=== PATIENT | female | born 1995 | race Caucasian/White ===

== ENCOUNTER 2017-08-16 14:26 | Emergency (ER) | payer BC ==
[2017-08-16] MEDS ORDERED: ONDANSETRON DISINTEGRATING 4 MG TAB PO ONE (14:41)
--- NOTE | 2017-08-16 15:10 | EDPHY ---
H & P Time Seen by Provider: 08/16/17 15:04 HPI/ROS: Chief complaint. Nausea and vomiting HPI. 22-year-old female presents emergency department with nausea vomiting since about 9:00 a.m. this morning. She felt well last night and then awoke at 9 feeling upset stomach. Can't keep any oral fluids down. Denies any areas of abdominal pain but feels queasy. No diarrhea. No sick contacts or bad food. She did have similar symptoms in February had a negative H pylori test and was treated with omeprazole. She uses a map result only as needed. She has not had any abdominal surgery. No chest discomfort or shortness of breath. ROS Constitutional. no fever/chills, no weakness Eyes. no problems with vision ENT. no sore throat, no nasal drainage Cardiovascular. no chest pain Respiratory. no shortness of breath, no cough Abdominal. No abdominal pain but nausea and vomiting . no problems urinating MS. no calf pain/swelling, no neck/back pain, no joint pain Skin. no rash Lymph. no swollen glands Neuro. no headache, no dizziness, no difficulty walking or with speech Past Medical/Surgical History: Healthy Social History: Single, nonsmoker, no alcohol Smoking Status: Never smoked Physical Exam: General Appearance: Alert well-developed female moderate distress vital signs are stable Eyes: Pupils equal and round no pallor or injection. ENT, mucous membranes are dry Respiratory: There are no retractions, lungs are clear to auscultation. Cardiovascular: Regular rate and rhythm. Gastrointestinal: Abdomen is soft and nontender, no masses, bowel sounds normal. Neurological: Awake and alert, sensory and motor exams grossly normal. Skin: Warm and dry, no rashes. Musculoskeletal: Neck is supple nontender. Extremities symmetrical, full range of motion. Psychiatric: Patient is oriented X 3, there is no agitation. Constitutional: Initial Vital Signs Temperature (C) 36.7 C 08/16/17 14:35 Heart Rate 81 08/16/17 14:35 Respiratory Rate 28 H 08/16/17 14:35 Blood Pressure 142/89 H 08/16/17 14:35 O2 Sat (%) 100 08/16/17 14:35 O2 Delivery Mode Room Air Allergies/Adverse Reactions: No Known Allergies Allergy (Unverified 08/16/17 14:39) Home Medications: Medication Instructions Recorded Promethazine HCl [Phenergan 25mg 25 mg PO Q4-6PRN PRN #7 tab 08/16/17 (*)] Medical Decision Making Procedures: Oral Zofran at triage IV normal saline with initial target 2 L. Phenergan IV. ED Course/Re-evaluation: Re-evaluation 3:45 p.m.. Patient feeling better. No nausea vomiting. IV running. 4:30 p.m. patient has her finger down her throat while I walk into the room. She is now retching a again. She does need to urinate Haldol, Benadryl IV Re-evaluation 6:35 p.m.. Patient has no longer any nausea or vomiting. She has taken oral fluids. Again she has been up to the bathroom to urinate. Patient and I discussed treatment plan including criteria for return importance of follow-up and further evaluation. She expresses understanding and agreement Differential Diagnosis: I considered hyperemesis from , THC induced cyclic vomiting, gastroenteritis. I also considered appendicitisin - Data Points Laboratory Results: Laboratory Results 08/16/17 15:02 08/16/17 15:02 08/16/17 08/16/17 08/16/17 15:02 15:02 15:02 WBC 11.09 10^3/uL H 10^3/uL (3.80-9.50) RBC 5.19 10^6/uL 10^6/uL (4.18-5.33) Hgb 14.9 g/dL g/dL (12.6-16.3) Hct 44.7 % % (38.0-47.0) MCV 86.1 fL fL (81.5-99.8) MCH 28.7 pg pg (27.9-34.1) MCHC 33.3 g/dL g/dL (32.4-36.7) RDW 13.2 % % (11.5-15.2) Plt Count 335 10^3/uL 10^3/uL (150-400) MPV 11.1 fL fL (8.7-11.7) Neut % (Auto) 64.7 % % (39.3-74.2) Lymph % (Auto) 29.3 % % (15.0-45.0) [place] % (Auto) 4.8 % % (4.5-13.0) Eos % (Auto) 0.2 % L % (0.6-7.6) Baso % (Auto) 0.5 % % (0.3-1.7) Nucleat RBC Rel Count 0.0 % % (0.0-0.2) Absolute Neuts (auto) 7.19 10^3/uL H 10^3/uL (1.70-6.50) Absolute Lymphs (auto) 3.25 10^3/uL H 10^3/uL (1.00-3.00) Absolute Monos (auto) 0.53 10^3/uL 10^3/uL (0.30-0.80) Absolute Eos (auto) 0.02 10^3/uL L 10^3/uL (0.03-0.40) Absolute Basos (auto) 0.05 10^3/uL 10^3/uL (0.02-0.10) Absolute Nucleated RBC 0.00 10^3/uL 10^3/uL (0-0.01) Immature Gran % 0.5 % % (0.0-1.1) Immature Gran # 0.05 10^3/uL 10^3/uL (0.00-0.10) Sodium REJ Potassium Not Reported Chloride Not Reported Carbon Dioxide Not Reported Anion Gap Not Reported BUN Not Reported Creatinine Not Reported Estimated GFR Not Reported Glucose Not Reported Calcium Not Reported Lipase REJ Beta HCG, Qual NEGATIVE Medications Given: Discontinued Medications Diphenhydramine HCl (Benadryl Injection) 12.5 mg IVP EDNOW ONE Stop: 08/16/17 16:50 Last Admin: 08/16/17 16:55 Dose: 12.5 mg Haloperidol Lactate (Haldol Injection) 2.5 mg IVP EDNOW ONE Stop: 08/16/17 16:50 Last Admin: 08/16/17 16:55 Dose: 2.5 mg Sodium Chloride (Ns) 1,000 mls @ 0 mls/hr IV ONCE ONE; Wide Open PRN Reason: Protocol Stop: 08/16/17 15:17 Last Admin: 08/16/17 15:26 Dose: 1,000 mls Sodium Chloride (Ns) 1,000 mls @ 0 mls/hr IV EDNOW ONE; Wide Open PRN Reason: Protocol Stop: 08/16/17 15:17 Last Admin: 08/16/17 15:26 Dose: 1,000 mls Ondansetron HCl (Zofran Odt) 4 mg PO EDNOW ONE Stop: 08/16/17 14:42 Last Admin: 08/16/17 14:46 Dose: 4 mg Promethazine HCl (Phenergan) 12.5 mg IVP EDNOW ONE Stop: 08/16/17 15:16 Last Admin: 08/16/17 15:25 Dose: 12.5 mg Departure - Departure Disposition: Home, Routine, Self-Care Clinical Impression: Vomiting Qualifiers: Vomiting type: cyclical vomiting Vomiting Intractability: non-intractable Nausea presence: with nausea Qualified Code(s): G43.A0 - Cyclical vomiting, not intractable Condition: Good Instructions: Acute Nausea and Vomiting (ED) Additional Instructions: Frequent, small sips fluids. Phenergan as needed for nausea and vomiting. Gradual diet advancement. Return for worsening symptoms. Recheck in 1 day if not improved Referrals: UMAIR SALAZAR [Other] - As per Instructions [facility] [Outside] - 1 day, if not improved Prescriptions: Promethazine HCl [Phenergan 25mg (*)] 25 mg PO Q4-6PRN PRN #7 tab PRN Reason: Nausea/Vomiting, Use 1st
[2017-08-16] MEDS ORDERED: PROMETHAZINE HCL 25 MG/ML INJ IVP ONE (15:15)
[2017-08-16] MEDS ORDERED: NS 1,000 ML IV ONE ×2 (15:16)
[2017-08-16 15:20] LABS: % IMMATURE GRANULYOCYTES 0.5 % (0.0-1.1); ABSOLUTE IMMATURE GRANULOCYTES 0.05 10^3/uL (0.00-0.10); ADD DIFF? NO; ADD MORPH? NO; ADD SCAN? NO; ATYPICAL LYMPHOCYTE FLAG 10 (0-99); FRAGMENT RBC FLAG 0 (0-99); HEMATOCRIT 44.7 % (38.0-47.0); HEMOGLOBIN 14.9 g/dL (12.6-16.3); LEFT SHIFT FLG 0 (0-99); LIPEMIA HEMOLYSIS FLAG 80 (0-99); MEAN CELL HEMOGLOBIN 28.7 pg (27.9-34.1); MEAN CELL HEMOGLOBIN CONCENTR. 33.3 g/dL (32.4-36.7); MEAN CELL VOLUME 86.1 fL (81.5-99.8); MEAN PLATELET VOLUME 11.1 fL (8.7-11.7); PLATELET CLUMPS FLAG 20 (0-99); PLATELET COUNT 335 10^3/uL (150-400); RED BLOOD CELL COUNT 5.19 10^6/uL (4.18-5.33); RED CELL DISTRIBUTION WIDTH 13.2 % (11.5-15.2)
[2017-08-16 16:27] VITALS: PULSE 74
[2017-08-16] MEDS ORDERED: HALOPERIDOL LACT 5 MG/ML INJ IVP ONE (16:49)
[2017-08-16 18:39] VITALS: BP 124/78; RESP 18; TEMP 98.4; O2SAT 95
== END 2017-08-16 18:51 | disposition home or self-care (01) ==
DX: G43.A0 Cyclical vomiting, in migraine, not intractable (principal); E86.9 Volume depletion, unspecified
CPT/HCPCS: 96374; J1200; J2550

== ENCOUNTER 2017-09-10 13:40 | Emergency (ER) | payer BC ==
[2017-09-10] MEDS ORDERED: ONDANSETRON DISINTEGRATING 4 MG TAB PO ONE (13:46)
[2017-09-10] MEDS ORDERED: NS 1,000 ML IV ONE ×2 (14:46→15:53)
[2017-09-10] MEDS ORDERED: METOCLOPRAMIDE 10 MG/2 ML VIAL ONE (14:51)
[2017-09-10] MEDS ORDERED: METOCLOPRAMIDE 10 MG/2 ML VIAL IVP ONE (14:55)
--- NOTE | 2017-09-10 14:55 | EDPHY ---
General Narrative: CHIEF COMPLAINT: Nausea vomiting HISTORY OF PRESENT ILLNESS: Patient complains of sudden onset of nausea vomiting this morning at 9:00 a.m.. Constant duration. Continually worsening. Multiple episodes. Associated with epigastric and right upper quadrant abdominal pain. Associated with some dizziness. No chest pain. No shortness of breath. No trauma or injury. No diarrhea. No bloody emesis. No fever. History of gastroparesis diagnosed earlier this summer. Has been taking promethazine and Reglan due to this. No other associated complaints or modifying factors REVIEW OF SYSTEMS: Ten systems reviewed and are negative unless otherwise noted in the HPI PCP: Alex SPECIALISTS: [facility] PAST MEDICAL HISTORY: Gastroparesis PAST SURGICAL HISTORY: None SOCIAL HISTORY: Nonsmoker. No alcohol. Marijuana use twice weekly. Originally from [place]. Currently a sophomore at [employer] FAMILY HISTORY: Noncontributory EXAMINATION General Appearance: Alert, no distress Head: normocephalic, atraumatic Eyes: Pupils equal and round, no conjunctival pallor or injection ENT, Mouth: Mucous membranes moist Neck: Normal inspection, supple, non-tender Respiratory: Lungs are clear to auscultation. No wheezing, rhonchi or crackles Cardiovascular: Regular rate and rhythm. No murmur Gastrointestinal: Abdomen is soft and nondistended. There is tenderness in the epigastrium right upper quadrant. No guarding. No tympany. No rigidity. No CVA tenderness. Back: non-tender, no bony abnormalities Neurological: A&O, nonfocal, normal gait Skin: Warm and dry, no rash Extremities: Nontender, no pedal edema Psychiatric: Mood and affect normal DIFFERENTIAL DIAGNOSES: Including but not limited to cholecystitis, cholelithiasis, peptic ulcer, gastritis, enteritis, gastroparesis, gastric outlet obstruction MDM: 2:50 p.m. Nausea vomiting epigastric pain. Patient has reported history of gastroparesis but no history of diabetes. Still has a gallbladder. Abdominal exam does reveal some right upper quadrant tenderness but is nonacute in severity. Laboratory studies are currently being drawn. I have ordered IV fluid, Reglan and Benadryl. Consider ultrasound versus CT scan pending results of laboratory studies. 3:53 p.m. Patient re-evaluated. She is now much more comfortable. No longer vomiting. Laboratory studies are consistent with vomiting. There is no transaminitis or abnormality of the liver function panel given her history and location of her pain, I have ordered an ultrasound. Continue with IV fluid resuscitation. 4:35 p.m. Notified by radiologist Dr. Billings. Ultrasound is unremarkable for any acute findings. 4:55 p.m. Patient re-evaluated. She is starting to feel better. This is after multiple anti emetics. I did offer admission the hospital for further control but she has declined. She feels that she is well enough to go home. Her abdominal exam remains benign and I do not feel she warrants a CT scan at this time. I will send her home with Zofran and promethazine. She is to contact her established GI physician at [facility]. She is to return to the emergency department for any intolerance of liquid over 24 hours or any worsening symptoms. She is comfortable this plan. She will be discharged home stable condition following the current L of IV fluid. - Diagnostics Imaging Results: Imaging Impressions Abdomen Ultrasound 09/10/17 15:48 Impression: No cholelithiasis or biliary ductal dilation. Findings and recommendations discussed with Emergency Department physician, Capo Mcgill PAC at 16:36 hour, 09/10/2017. Final report concurs with initial preliminary interpretation. - History Smoking Status: Never smoked - Objective Vital Signs: Initial Vital Signs Heart Rate 83 09/10/17 13:41 Respiratory Rate 18 09/10/17 13:41 Blood Pressure 115/88 H 09/10/17 13:41 O2 Sat (%) 99 09/10/17 13:41 O2 Delivery Mode Room Air Allergies/Adverse Reactions: No Known Allergies Allergy (Unverified 08/16/17 14:39) Home Medications: Medication Instructions Recorded Promethazine HCl [Phenergan 25mg 25 mg PO Q4-6PRN PRN #7 tab 08/16/17 (*)] Ondansetron Odt [Zofran Odt 4 mg 4 mg PO Q6 PRN #12 tab 09/10/17 (*)] Promethazine HCl [Phenergan 25mg 25 mg PO Q8 PRN #12 tab 09/10/17 (*)] Laboratory Results: Laboratory Results 09/10/17 15:05 09/10/17 15:05 09/10/17 09/10/17 09/10/17 15:05 15:05 15:05 WBC 12.61 10^3/uL H 10^3/uL (3.80-9.50) RBC 5.20 10^6/uL 10^6/uL (4.18-5.33) Hgb 15.4 g/dL g/dL (12.6-16.3) Hct 43.6 % % (38.0-47.0) MCV 83.8 fL fL (81.5-99.8) MCH 29.6 pg pg (27.9-34.1) MCHC 35.3 g/dL g/dL (32.4-36.7) RDW 13.3 % % (11.5-15.2) Plt Count 307 10^3/uL 10^3/uL (150-400) MPV 10.7 fL fL (8.7-11.7) Neut % (Auto) 77.7 % H % (39.3-74.2) Lymph % (Auto) 15.5 % % (15.0-45.0) [place] % (Auto) 5.8 % % (4.5-13.0) Eos % (Auto) 0.1 % L % (0.6-7.6) Baso % (Auto) 0.3 % % (0.3-1.7) Nucleat RBC Rel Count 0.0 % % (0.0-0.2) Absolute Neuts (auto) 9.81 10^3/uL H 10^3/uL (1.70-6.50) Absolute Lymphs (auto) 1.95 10^3/uL 10^3/uL (1.00-3.00) Absolute Monos (auto) 0.73 10^3/uL 10^3/uL (0.30-0.80) Absolute Eos (auto) 0.01 10^3/uL L 10^3/uL (0.03-0.40) Absolute Basos (auto) 0.04 10^3/uL 10^3/uL (0.02-0.10) Absolute Nucleated RBC 0.00 10^3/uL 10^3/uL (0-0.01) Immature Gran % 0.6 % % (0.0-1.1) Immature Gran # 0.07 10^3/uL 10^3/uL (0.00-0.10) Sodium 142 mEq/L mEq/L (134-144) Potassium 4.0 mEq/L mEq/L (3.5-5.2) Chloride 105 mEq/L mEq/L (97-110) Carbon Dioxide 18 mEq/l L mEq/l (22-31) Anion Gap 19 mEq/L H mEq/L (8-16) BUN 9 mg/dL mg/dL (7-23) Creatinine 0.7 mg/dL mg/dL (0.6-1.0) Estimated GFR > 60 Glucose 113 mg/dL H mg/dL (70-100) Calcium 10.6 mg/dL H mg/dL (8.5-10.4) Total Bilirubin 1.4 mg/dL mg/dL (0.1-1.4) Conjugated Bilirubin 0.3 mg/dL mg/dL (0.0-0.5) Unconjugated Bilirubin 1.1 mg/dL mg/dL (0.0-1.1) AST 35 IU/L IU/L (14-46) ALT 41 IU/L IU/L (9-52) Alkaline Phosphatase 44 IU/L IU/L (38-126) Total Protein 8.3 g/dL H g/dL (6.3-8.2) Albumin 5.1 g/dL H g/dL (3.5-5.0) Lipase 29 IU/L IU/L (23-300) Beta HCG, Qual NEGATIVE Medications Given: Discontinued Medications Diphenhydramine HCl (Benadryl Injection) 50 mg IVP EDNOW ONE Stop: 09/10/17 14:56 Last Admin: 09/10/17 15:00 Dose: 50 mg Sodium Chloride (Ns) 1,000 mls @ 0 mls/hr IV EDNOW ONE; Wide Open PRN Reason: Protocol Stop: 09/10/17 14:47 Last Admin: 09/10/17 15:00 Dose: 1,000 mls Sodium Chloride (Ns) 1,000 mls @ 0 mls/hr IV EDNOW ONE; Wide Open PRN Reason: Protocol Stop: 09/10/17 15:54 Last Admin: 09/10/17 16:19 Dose: 1,000 mls Lorazepam (Ativan Injection) 1 mg IVP EDNOW ONE Stop: 09/10/17 16:14 Last Admin: 09/10/17 16:19 Dose: 1 mg Metoclopramide HCl (Reglan Injection) 10 mg IVP EDNOW ONE Stop: 09/10/17 14:56 Last Admin: 09/10/17 15:00 Dose: 10 mg Ondansetron HCl (Zofran Odt) 4 mg PO EDNOW ONE Stop: 09/10/17 13:47 Last Admin: 09/10/17 13:48 Dose: 4 mg Departure - Departure Disposition: Home, Routine, Self-Care Clinical Impression: Gastroparesis Nausea & vomiting Qualifiers: Vomiting type: unspecified Vomiting Intractability: non-intractable Qualified Code(s): R11.2 - Nausea with vomiting, unspecified Condition: Good Instructions: Acute Nausea and Vomiting (ED), Gastroparesis (ED) Referrals: UNKNOWN,PCP [Other] - As per Instructions Scarlet Clemente MD [[facility] Primary Care Provider] - As per Instructions ALEX Fletcher,. [Clinic] - As per Instructions Prescriptions: Ondansetron Odt [Zofran Odt 4 mg (*)] 4 mg PO Q6 PRN #12 tab PRN Reason: Nausea/Vomiting, Use 1st Promethazine HCl [Phenergan 25mg (*)] 25 mg PO Q8 PRN #12 tab PRN Reason: Nausea/Vomiting, Use 1st
[2017-09-10 15:20] LABS: % IMMATURE GRANULYOCYTES 0.6 % (0.0-1.1); ABSOLUTE IMMATURE GRANULOCYTES 0.07 10^3/uL (0.00-0.10); ADD DIFF? NO; ADD MORPH? NO; ADD SCAN? NO; ATYPICAL LYMPHOCYTE FLAG 0 (0-99); FRAGMENT RBC FLAG 0 (0-99); HEMATOCRIT 43.6 % (38.0-47.0); HEMOGLOBIN 15.4 g/dL (12.6-16.3); LEFT SHIFT FLG 0 (0-99); LIPEMIA HEMOLYSIS FLAG 90 (0-99); MEAN CELL HEMOGLOBIN 29.6 pg (27.9-34.1); MEAN CELL HEMOGLOBIN CONCENTR. 35.3 g/dL (32.4-36.7); MEAN CELL VOLUME 83.8 fL (81.5-99.8); MEAN PLATELET VOLUME 10.7 fL (8.7-11.7); PLATELET CLUMPS FLAG 0 (0-99); PLATELET COUNT 307 10^3/uL (150-400); RED CELL DISTRIBUTION WIDTH 13.3 % (11.5-15.2)
[2017-09-10 15:26] LABS: ALANINE AMINOTRANSFERASE 41 IU/L (9-52); ALBUMIN 5.1 g/dL (3.5-5.0); ALKALINE PHOSPHATASE 44 IU/L (38-126); ANION GAP 19 mEq/L (8-16); ASPARTATE AMINOTRANSFERASE 35 IU/L (14-46); BILIRUBIN,TOTAL 1.4 mg/dL (0.1-1.4); BILIRUBIN-CONJUGATED 0.3 mg/dL (0.0-0.5); BILIRUBIN-UNCONJUGATED 1.1 mg/dL (0.0-1.1); CALCIUM 10.6 mg/dL (8.5-10.4); CARBON DIOXIDE 18 mEq/l (22-31); CHLORIDE 105 mEq/L (97-110); CREATININE 0.7 mg/dL (0.6-1.0); GLOMERULAR FILTRATION RATE > 60; GLUCOSE 113 mg/dL (70-100); SODIUM 142 mEq/L (134-144); TOTAL PROTEIN 8.3 g/dL (6.3-8.2)
[2017-09-10] MEDS ORDERED: LORazepam 2 MG/ML INJ IVP ONE (16:13)
[2017-09-10 16:23] VITALS: RESP 18
[2017-09-10 17:12] VITALS: BP 112/78; PULSE 89; TEMP 98.4; O2SAT 98
== END 2017-09-10 17:19 | disposition home or self-care (01) ==
DX: K31.84 Gastroparesis (principal); E86.9 Volume depletion, unspecified
CPT/HCPCS: 96374; J1200; J2060; J2765

== ENCOUNTER 2018-03-25 09:21 | Emergency (ER) | payer BC ==
[2018-03-25] MEDS ORDERED: NS 1,000 ML IV ONE ×2 (09:36→10:13)
[2018-03-25] MEDS ORDERED: METOCLOPRAMIDE 10 MG/2 ML VIAL IVP ONE (09:36)
[2018-03-25] MEDS ORDERED: FAMOTIDINE 20 MG/NACL 50 ML IV ONE (09:36)
--- NOTE | 2018-03-25 09:37 | EDPHY ---
General Time Seen by Provider: 03/25/18 09:31 Narrative: CHIEF COMPLAINT: Abdominal pain, nausea vomiting HISTORY OF PRESENT ILLNESS: Patient complains of 2 days history of nausea, vomiting and abdominal pain. Gradual onset. Constant duration. She does have some improvement at times but minimal. No fever or chills. No trauma or injury. No bloody stools or emesis. No improvement with Zofran that she has at home. She has been seen in the past for this in her home state, [place]. She has had endoscopy and gastric emptying studies with questionable diagnosis of gastroparesis. She was also told to stop marijuana use, which she has done with no improvement. She does not have a diagnosis of inflammatory bowel or irritable bowel syndrome. She presented to Urgent Care prior to arrival, where they did a physical exam only. They sent her here for higher level of care. No other associated complaints or modifying factors. She did miss her last menstrual. But does not report any chance of . REVIEW OF SYSTEMS: Ten systems reviewed and are negative unless otherwise noted in the HPI PCP: In [place] SPECIALISTS: [facility] in [place] PAST MEDICAL HISTORY: Questionable diagnosis of gastroparesis, chronic vomiting PAST SURGICAL HISTORY: No recent surgeries. SOCIAL HISTORY: Nonsmoker. [employer] student. No marijuana use in the past several months FAMILY HISTORY: Noncontributory EXAMINATION General Appearance: Alert, no distress, vomiting Head: normocephalic, atraumatic Eyes: Pupils equal and round, no conjunctival pallor or injection ENT, Mouth: Mucous membranes moist. Airway patent Neck: Normal inspection, supple, non-tender Respiratory: Lungs are clear to auscultation Cardiovascular: Regular rate and rhythm Gastrointestinal: Abdomen is soft and nondistended. There is tenderness in all 4 quadrants. No guarding. No rebound. No palpable mass. Back: non-tender, no bony abnormalities Neurological: A&O, nonfocal, normal gait Skin: Warm and dry, no rash. No petechiae or purpura Extremities: Nontender, no pedal edema Psychiatric: Mood and affect normal DIFFERENTIAL DIAGNOSES: Including but not limited to cyclical vomiting, gastritis, pancreatitis, gastroenteritis, colitis, gastroparesis MDM: 9:40 a.m. Two days of nausea, vomiting diarrhea with history of vomiting without a formal diagnosis. She is questionable diagnosis of gastroparesis. She also has a questionable diagnosis of cyclical vomiting from prior physician. She is actively vomiting. IV is currently being placed. I have ordered multiple medications and will monitor closely. I have not ordered any imaging as her abdominal exam is nonacute, and an HCG is an appropriate test for at this time. 10:15 a.m. Patient re-evaluated. She is starting to feel better, and is no longer vomiting. Laboratory studies pending 11:00 a.m. Laboratory studies reveal mild transaminitis. Bilirubin is normal. Alkaline phosphatase normal. I have ordered an ultrasound of the gallbladder 11:30 a.m. Notified by radiologist Dr. Billings. Gallbladder ultrasound is within normal limits. 12:00 p.m. Patient re-evaluated. She is feeling significantly better. No nausea. She has no abdominal pain of any kind. I discussed her mildly elevated transaminases. She has an appointment with her armhole baster hand in [place] on Wednesday. She will discuss this with them and re-evaluate the labs there. She will be discharged home with 2 forms of antinausea medication as well as Bentyl. We discussed [id number] Pepcid. We discussed refrain from marijuana use. We discussed ED precautions and she is comfortable this plan. She is discharged in stable condition SUPERVISION: Patient was independently examined, but I discussed the case with my secondary supervising physician Dr. Hayes - Diagnostics Imaging Results: Imaging Impressions Abdomen X-Ray 03/25/18 10:14 Impression: No evidence for obstruction. Abdomen Ultrasound 03/25/18 10:43 Impression: No cholelithiasis or biliary ductal dilation. Findings and recommendations discussed with Emergency Department physician, Capo Mcgill PAC at 11:31 hour, 03/25/2018. Final report concurs with initial preliminary interpretation. - History Smoking Status: Never smoked - Objective Vital Signs: Initial Vital Signs Temperature (C) 97.3 F 03/25/18 09:23 Heart Rate 66 03/25/18 09:23 Respiratory Rate 20 03/25/18 09:23 Blood Pressure 129/66 H 03/25/18 09:23 O2 Sat (%) 100 03/25/18 09:23 O2 Delivery Mode Room Air Allergies/Adverse Reactions: No Known Allergies Allergy (Verified 03/25/18 09:22) Home Medications: Medication Instructions Recorded Ondansetron Odt [Zofran Odt 4 mg 4 mg PO Q6 PRN #12 tab 09/10/17 (*)] Dicyclomine [Bentyl 20 MG (*)] 20 mg PO QID PRN #12 tab 03/25/18 Promethazine HCl [Phenergan 25mg 25 mg PO Q8 PRN #20 tab 03/25/18 (*)] Promethazine HCl [Phenergan] 12.5 mg RC TID PRN #12 supp.rect 03/25/18 Laboratory Results: Laboratory Results 03/25/18 09:35 03/25/18 09:35 03/25/18 03/25/18 03/25/18 09:35 09:35 09:35 WBC 16.31 10^3/uL H 10^3/uL (3.80-9.50) RBC 5.11 10^6/uL 10^6/uL (4.18-5.33) Hgb 14.7 g/dL g/dL (12.6-16.3) Hct 44.0 % % (38.0-47.0) MCV 86.1 fL fL (81.5-99.8) MCH 28.8 pg pg (27.9-34.1) MCHC 33.4 g/dL g/dL (32.4-36.7) RDW 14.6 % % (11.5-15.2) Plt Count 324 10^3/uL 10^3/uL (150-400) MPV 10.6 fL fL (8.7-11.7) Neut % (Auto) Not Reported Lymph % (Auto) Not Reported [place] % (Auto) Not Reported Eos % (Auto) Not Reported Baso % (Auto) Not Reported Nucleat RBC Rel Count Not Reported Absolute Neuts (auto) Not Reported Absolute Lymphs (auto) Not Reported Absolute Monos (auto) Not Reported Absolute Eos (auto) Not Reported Absolute Basos (auto) Not Reported Absolute Nucleated RBC Not Reported Immature Gran % Not Reported Seg Neutrophils % 61.0 % % Band Neutrophils % 4.0 % % Lymphocytes % 24.0 % % Monocytes % 10.0 % % Eosinophils % 1.0 % % Basophils % 0 % % Metamyelocytes % 0 % % Myelocytes % 0 % % Promyelocytes % 0 % % Blast Cells % 0 % % Immature Gran # Not Reported Absolute Seg Neuts 9.95 10^/uL H 10^/uL (1.70-6.50) Absolute Band Neuts 0.65 10^3/uL 10^3/uL (0.00-0.70) Absolute Lymphocytes 3.91 10^3/uL H 10^3/uL (1.00-3.00) Absolute Monocytes 1.63 10^3/uL H 10^3/uL (0.30-0.80) Absolute Eosinophils 0.16 10^3/uL 10^3/uL (0.03-0.40) Absolute Basophils 0.00 10^3/uL L 10^3/uL (0.02-0.10) Absolute Metamyelocyte 0.00 10^3/mL 10^3/mL (0.00-0.00) Absolute Myelocytes 0.00 10^3/mL 10^3/mL (0.00-0.00) Absolute Promyelocytes 0.00 10^3/uL 10^3/uL (0.00-0.00) Absolute Plasma Cells 0.00 10^3/uL 10^3/uL (0.00-0.00) RBC/WBC/PLT Morphology NORMAL (NORMAL) Absolute Blast Cells 0.00 10^3/uL 10^3/uL (0.00-0.00) Plasma Cells % 0 % % Platelet Estimate ADEQUATE (ADEQ) Sodium 141 mEq/L mEq/L (135-145) Potassium 3.4 mEq/L L mEq/L (3.5-5.2) Chloride 100 mEq/L mEq/L (97-110) Carbon Dioxide 22 mEq/l mEq/l (22-31) Anion Gap 19 mEq/L H mEq/L (8-16) BUN 12 mg/dL mg/dL (7-23) Creatinine 0.8 mg/dL mg/dL (0.6-1.0) Estimated GFR > 60 Glucose 103 mg/dL H mg/dL (70-100) Calcium 10.0 mg/dL mg/dL (8.5-10.4) Total Bilirubin 0.8 mg/dL mg/dL (0.1-1.4) Conjugated Bilirubin 0.4 mg/dL mg/dL (0.0-0.5) Unconjugated Bilirubin 0.4 mg/dL mg/dL (0.0-1.1) AST 50 IU/L H IU/L (14-46) ALT 77 IU/L H IU/L (9-52) Alkaline Phosphatase 46 IU/L IU/L (38-126) Total Protein 8.2 g/dL g/dL (6.3-8.2) Albumin 4.9 g/dL g/dL (3.5-5.0) Lipase 29 IU/L IU/L (23-300) Beta HCG, Qual NEGATIVE Medications Given: Discontinued Medications Diphenhydramine HCl (Benadryl Injection) 25 mg IVP EDNOW ONE Stop: 03/25/18 09:38 Last Admin: 03/25/18 09:41 Dose: 25 mg Sodium Chloride (Ns) 1,000 mls @ 0 mls/hr IV EDNOW ONE; Wide Open PRN Reason: Protocol Stop: 03/25/18 09:37 Last Admin: 03/25/18 09:40 Dose: 1,000 mls Famotidine/Sodium Chloride (Pepcid 20 Mg (Premix)) 50 mls @ 200 mls/hr IV EDNOW ONE Stop: 03/25/18 09:50 Last Admin: 03/25/18 09:46 Dose: 50 mls Sodium Chloride (Ns) 1,000 mls @ 0 mls/hr IV EDNOW ONE; Wide Open PRN Reason: Protocol Stop: 03/25/18 10:14 Last Admin: 03/25/18 10:28 Dose: 1,000 mls Metoclopramide HCl (Reglan Injection) 10 mg IVP EDNOW ONE Stop: 03/25/18 09:37 Last Admin: 03/25/18 09:41 Dose: 10 mg Promethazine HCl (Phenergan) 12.5 mg IVP ONCE ONE Stop: 03/25/18 10:34 Last Admin: 03/25/18 10:38 Dose: 12.5 mg Departure - Departure Disposition: Home, Routine, Self-Care Clinical Impression: Transaminitis Nausea & vomiting Qualifiers: Vomiting type: unspecified Vomiting Intractability: non-intractable Qualified Code(s): R11.2 - Nausea with vomiting, unspecified Condition: Good Instructions: Acute Nausea and Vomiting (ED) Additional Instructions: 1. Recommend [id number] Pepcid, 20 mg twice daily for the next 10 days 2. Prescription medications as provided as needed 3. Follow up with your armhole baster hand next week when you are in [place]. You will need to have your liver enzymes recheck by that physician or return here to do so 4. ED precautions as discussed Referrals: Kaya Herrera MD [Medical Doctor] - As per Instructions Stand Alone Forms: School Excuse Prescriptions: Dicyclomine [Bentyl 20 MG (*)] 20 mg PO QID PRN #12 tab PRN Reason: Pain, Mild Promethazine HCl [Phenergan] 12.5 mg RC TID PRN #12 supp.rect PRN Reason: Nausea/Vomiting, Use 2nd Promethazine HCl [Phenergan 25mg (*)] 25 mg PO Q8 PRN #20 tab PRN Reason: Nausea/Vomiting, Use 1st
[2018-03-25 10:02] LABS: PLATELET COUNT 324 10^3/uL (150-400)
[2018-03-25] MEDS ORDERED: PROMETHAZINE HCL 25 MG/ML INJ IVP ONE (10:33)
[2018-03-25 12:15] VITALS: BP 102/53
== END 2018-03-25 12:20 | disposition home or self-care (01) ==
DX: R11.2 Nausea with vomiting, unspecified (principal); R74.0 Nonspecific elevation of levels of transaminase and lactic acid dehydrogenase [LDH]
CPT/HCPCS: 96365; J1200; J2550; J2765

== ENCOUNTER 2018-08-14 17:08 | Emergency (ER) | payer BC ==
--- NOTE | 2018-08-14 17:16 | EDPHY ---
H & P Time Seen by Provider: 08/14/18 17:15 HPI/ROS: CHIEF COMPLAINT: Nausea vomiting diarrhea HISTORY OF PRESENT ILLNESS: Patient is 23-year-old female with a long history of recurrent nausea vomiting and diarrhea. She is followed by audiovisual lead technician in [place] was done upper endoscopy and HIDA scan recently both which were negative for acute pathology. Source of her recurrent nausea vomiting diarrhea is unclear. She did try her promethazine suppository at home with no relief. She states she felt well yesterday and drank alcohol last night. She woke this morning with nausea vomiting diarrhea. There is no blood in the emesis or diarrhea. She has no history of Crohn's or ulcerative colitis. She has never had a colonoscopy. REVIEW OF SYSTEMS: Constitutional: No fever, no chills. Eyes: No discharge. ENT: No sore throat. Cardiovascular: No chest pain, no palpitations. Respiratory: No cough, no shortness of breath. Gastrointestinal: + abdominal pain, + vomiting. Genitourinary: No hematuria. Musculoskeletal: No back pain. Skin: No rashes. Neurological: No headache. Smoking Status: Never smoked Physical Exam: General Appearance: Alert and no distress. Eyes: Pupils equal and round no injection. Respiratory: Chest is nontender, lungs are clear to auscultation. Cardiac: regular rate and rhythm. Gastrointestinal: Abdomen is soft and nontender, no masses, bowel sounds normal. Musculoskeletal: Neck is supple and nontender. Extremities have full range of motion and are nontender. Skin: No rashes or lesions. Constitutional: Initial Vital Signs Temperature (C) 36.6 C 08/14/18 17:13 Heart Rate 61 08/14/18 17:13 Respiratory Rate 22 H 08/14/18 17:13 Blood Pressure 115/58 L 08/14/18 17:13 O2 Sat (%) 99 08/14/18 17:13 O2 Delivery Mode Room Air Allergies/Adverse Reactions: No Known Allergies Allergy (Verified 08/14/18 17:18) Home Medications: Medication Instructions Recorded Ondansetron Odt [Zofran Odt 4 mg 4 mg PO Q6 PRN #12 tab 09/10/17 (*)] Dicyclomine [Bentyl 20 MG (*)] 20 mg PO QID PRN #12 tab 03/25/18 Promethazine HCl [Phenergan 25mg 25 mg PO Q8 PRN #20 tab 03/25/18 (*)] Promethazine HCl [Phenergan] 12.5 mg RC TID PRN #12 supp.rect 03/25/18 Ondansetron Odt [Zofran Odt 4 mg 4 mg PO Q4 #12 tab 08/14/18 (*)] Medical Decision Making ED Course/Re-evaluation: The patient is a 23-year-old female here with recurrent nausea vomiting diarrhea. She is hemodynamically stable with no of fever. On exam she had mild epigastric tenderness but no right upper or right lower quadrant tenderness. Labs reveal evidence of dehydration mild hypophosphatemia. I did discuss all these results with her and does agree to follow up with primary care physician to get her labs recheck in a couple days. She was given IV fluid and Zofran and Pepcid and did feel improved but was still unable to tolerate p.o.. She was then given 12.5 mg IV and a g and felt greatly improved and was able to tolerate p.o. She was referred to primary care for follow-up. Differential Diagnosis: Appendicitis, cholecystitis, choledocholithiasis, , UTI, pyelonephritis - Data Points Laboratory Results: Laboratory Results 08/14/18 17:20 08/14/18 17:20 08/14/18 08/14/18 08/14/18 17:20 17:20 17:20 WBC 12.26 10^3/uL H 10^3/uL (3.80-9.50) RBC 4.85 10^6/uL 10^6/uL (4.18-5.33) Hgb 14.5 g/dL g/dL (12.6-16.3) Hct 41.4 % % (38.0-47.0) MCV 85.4 fL fL (81.5-99.8) MCH 29.9 pg pg (27.9-34.1) MCHC 35.0 g/dL g/dL (32.4-36.7) RDW 13.2 % % (11.5-15.2) Plt Count 309 10^3/uL 10^3/uL (150-400) MPV 10.6 fL fL (8.7-11.7) Neut % (Auto) 68.7 % % (39.3-74.2) Lymph % (Auto) 25.4 % % (15.0-45.0) [place] % (Auto) 5.1 % % (4.5-13.0) Eos % (Auto) 0.0 % L % (0.6-7.6) Baso % (Auto) 0.4 % % (0.3-1.7) Nucleat RBC Rel Count 0.0 % % (0.0-0.2) Absolute Neuts (auto) 8.43 10^3/uL H 10^3/uL (1.70-6.50) Absolute Lymphs (auto) 3.11 10^3/uL H 10^3/uL (1.00-3.00) Absolute Monos (auto) 0.62 10^3/uL 10^3/uL (0.30-0.80) Absolute Eos (auto) 0.00 10^3/uL L 10^3/uL (0.03-0.40) Absolute Basos (auto) 0.05 10^3/uL 10^3/uL (0.02-0.10) Absolute Nucleated RBC 0.00 10^3/uL 10^3/uL (0-0.01) Immature Gran % 0.4 % % (0.0-1.1) Immature Gran # 0.05 10^3/uL 10^3/uL (0.00-0.10) Sodium 139 mEq/L mEq/L (135-145) Potassium 3.7 mEq/L mEq/L (3.3-5.0) Chloride 104 mEq/L mEq/L (97-110) Carbon Dioxide 20 mEq/l L mEq/l (22-31) Anion Gap 15 mEq/L mEq/L (8-16) BUN 12 mg/dL mg/dL (7-23) Creatinine 0.7 mg/dL mg/dL (0.6-1.0) Estimated GFR > 60 Glucose 136 mg/dL H mg/dL (70-100) Calcium 10.9 mg/dL H mg/dL (8.5-10.4) Phosphorus 2.0 mg/dL L mg/dL (2.5-4.5) Total Bilirubin 1.4 mg/dL mg/dL (0.1-1.4) AST 37 IU/L IU/L (14-46) ALT 39 IU/L IU/L (9-52) Alkaline Phosphatase 57 IU/L IU/L (38-126) Total Protein 8.8 g/dL H g/dL (6.3-8.2) Albumin 5.2 g/dL H g/dL (3.5-5.0) Lipase 25 IU/L IU/L (23-300) Beta HCG, Qual NEGATIVE Medications Given: Discontinued Medications Dicyclomine HCl (Bentyl) 20 mg PO EDNOW ONE Stop: 08/14/18 17:42 Last Admin: 08/14/18 17:50 Dose: 20 mg Famotidine (Pepcid) 20 mg IVP EDNOW ONE Stop: 08/14/18 17:20 Last Admin: 08/14/18 17:24 Dose: 20 mg Sodium Chloride (Ns) 1,000 mls @ 0 mls/hr IV EDNOW ONE; Wide Open PRN Reason: Protocol Stop: 08/14/18 17:20 Last Admin: 08/14/18 17:22 Dose: 1,000 mls Sodium Chloride (Ns) 1,000 mls @ 0 mls/hr IV EDNOW ONE; Wide Open PRN Reason: Protocol Stop: 08/14/18 17:42 Last Admin: 08/14/18 17:47 Dose: 1,000 mls Ondansetron HCl (Zofran) 4 mg IVP ONCE ONE Stop: 08/14/18 17:20 Last Admin: 08/14/18 17:24 Dose: 4 mg Promethazine HCl (Phenergan) 12.5 mg IVP ONCE ONE Stop: 08/14/18 18:21 Last Admin: 08/14/18 18:42 Dose: 12.5 mg Departure - Departure Disposition: Home, Routine, Self-Care Clinical Impression: Nausea vomiting and diarrhea, Hyperphosphatemia Condition: Good Instructions: Acute Nausea and Vomiting (ED) Additional Instructions: Please follow up with a primary care physician the next 2-3 days to have you're metabolic panel recheck. Return to the ER for persistent vomiting or other worrisome symptoms. Referrals: NONE *PRIMARY CARE P,. [Primary Care Provider] - As per Instructions Carlin Elias DO [Doctor of Osteopathy] - As per Instructions [facility],. [Clinic] - As per Instructions Prescriptions: Ondansetron Odt [Zofran Odt 4 mg (*)] 4 mg PO Q4 #12 tab
[2018-08-14] MEDS: NS 1,000 ML IV ONE ×2 (17:22→17:47)
[2018-08-14] MEDS: ONDANSETRON 4 MG/2 ML VIAL IVP ONE (17:24)
[2018-08-14] MEDS: FAMOTIDINE 20 MG/2 ML SDV IVP ONE (17:24)
[2018-08-14 17:30] LABS: PLATELET COUNT 309 10^3/uL (150-400)
[2018-08-14] MEDS: DICYCLOMINE 10 MG CAP PO ONE (17:50)
[2018-08-14] MEDS: PROMETHAZINE HCL 25 MG/ML INJ IVP ONE (18:42)
[2018-08-14 20:04] VITALS: BP 111/77
== END 2018-08-14 20:04 | disposition home or self-care (01) ==
DX: R11.2 Nausea with vomiting, unspecified (principal); R19.7 Diarrhea, unspecified; E83.39 Other disorders of phosphorus metabolism
CPT/HCPCS: 96374; J2405; J2550

== ENCOUNTER 2018-09-05 12:45 | Emergency (ER) | payer BC ==
[2018-09-05] MEDS ORDERED: HALOPERIDOL LACT 5 MG/ML INJ IVP ONE (12:58)
--- NOTE | 2018-09-05 12:58 | EDPHY ---
H & P Stated Complaint: NV Time Seen by Provider: 09/05/18 12:52 HPI/ROS: CHIEF COMPLAINT: Nausea vomiting HISTORY OF PRESENT ILLNESS: 23-year-old female history of recurrent nausea vomiting diarrhea seen the ER previously for similar, has previously been seen by certified fraud examiner in [place] with upper endoscopy and HIDA scan for both negative. Patient presents to the ER via private vehicle when she awoke with intractable vomiting, abdominal pain similar to her prior episodes. She does note some bloody appearing streaks in her last episode of emesis. No jamal blood. No melena or hematochezia. Passing gas as normal PRIMARY CARE PROVIDER: REVIEW OF SYSTEMS: 10 systems reviewed and negative with the exception of the elements mentioned in the history of present illness PAST MEDICAL & SURGICAL HISTORY: No pertinent medical or surgical history SOCIAL HISTORY:Positive for chronic marijuana use. PHYSICAL EXAM (Prior to examination, patient consented to physical exam, hands were washed and my usual and customary physical exam procedures followed) 1) GENERAL: Well-developed, well-nourished, alert and oriented. Appears uncomfortable, retching 2) HEAD: Normocephalic, atraumatic 3) HEENT: Pupils equal, round, reactive to light bilaterally. Sclera anicteric. Nasopharynx, oropharynx, clear, no lesions. Dry mucous membranes. 4) NECK: Full range of motion, no meningeal signs. 5) LUNGS: Clear auscultation bilaterally, no wheezes, no rhonchi, no retractions. 6) HEART: Regular rate and rhythm, no murmur, no heave, no gallop. 7) ABDOMEN: Guarding abdomen, diffusely tender to palpation with light touch all quadrants, 8) MUSCULOSKELETAL: Moving all extremities, no focal areas of tenderness, no obvious trauma. No peripheral edema or discoloration. 9) BACK: No CVA tenderness, no midline vertebral tenderness, no fluctuance, no step-off, no obvious trauma, no visual or palpable abnormality. 10) SKIN: No rash, no petechiae. 11) Psychiatric: Patient is oriented X 3, there is no agitation. DIFFERENTIAL DIAGNOSIS: My differential diagnosis includes, but is not limited to, cannabis hyperemesis, cyclic vomiting syndrome, acute appendicitis, acute cholecystitis, bowel obstruction, acute pancreatitis, ovarian torsion, ectopic , gastritis and urinary tract infection. The patient understands that this diagnosis is provisional and can never be 100% accurate. This is a partial list of diagnoses considered. These considerations are based on history , physical exam, past history and reassessment. - Personal History LMP (Females 10-55): 1-7 Days Ago Current Tetanus Diphtheria and Acellular Pertussis (TDAP): Yes - Medical/Surgical History Hx Asthma: No Hx Chronic Respiratory Disease: No Hx Diabetes: No Hx Cardiac Disease: No Hx Renal Disease: No Hx Cirrhosis: No Hx Alcoholism: No Hx HIV/AIDS: No Hx Splenectomy or Spleen Trauma: No Other PMH: gastroparesis. - Social History Smoking Status: Never smoked Constitutional: Initial Vital Signs Temperature (C) 36.8 C 09/05/18 12:48 Heart Rate 82 09/05/18 12:48 Respiratory Rate 18 09/05/18 12:48 Blood Pressure 132/87 H 09/05/18 12:48 O2 Sat (%) 100 09/05/18 12:48 O2 Delivery Mode Room Air Allergies/Adverse Reactions: No Known Allergies Allergy (Verified 08/14/18 17:18) Home Medications: Medication Instructions Recorded Ondansetron Odt [Zofran Odt 4 mg 4 mg PO Q6 PRN #12 tab 09/10/17 (*)] Dicyclomine [Bentyl 20 MG (*)] 20 mg PO QID PRN #12 tab 03/25/18 Promethazine HCl [Phenergan 25mg 25 mg PO Q8 PRN #20 tab 03/25/18 (*)] Promethazine HCl [Phenergan] 12.5 mg RC TID PRN #12 supp.rect 03/25/18 Ondansetron Odt [Zofran Odt 4 mg 4 mg PO Q4 #12 tab 08/14/18 (*)] Ondansetron Odt [Zofran Odt] 4 mg PO Q4PRN PRN #10 tab 09/05/18 Medical Decision Making ED Course/Re-evaluation: 1:03 p.m.: I reviewed the patient's old medical records. She has a history of similar. Will check diagnostic studies administer IV Haldol and IV fluids and re-evaluate. I saw this patient independently based on established practice protocols. Care of patient under supervision of secondary supervising physician Dr Thornton with whom I discussed case. 2:05 p.m.: Re-evaluation after IV Haldol. Sleeping. Re-examined her abdomen which is soft no guarding no rebound. No retching. 2:40 p.m. re-evaluation. Re-examined her abdomen. Smiling. Soft no guarding no rebound no McBurney's point pain. I think that acute surgical abdominal pathology is less than likely in this patient. Doubt acute appendicitis. At this time I do not think that imaging studies noted. [place] [id number] which I think is more likely to acute retching and acute neutrophil demargination . Patient feels comfortable being discharged with my usual and customary abdominal precautions instructions. - Data Points Laboratory Results: Laboratory Results 09/05/18 13:07 09/05/18 13:07 09/05/18 09/05/18 09/05/18 13:07 13:07 13:07 WBC 12.40 10^3/uL H 10^3/uL (3.80-9.50) RBC 5.18 10^6/uL 10^6/uL (4.18-5.33) Hgb 15.4 g/dL g/dL (12.6-16.3) Hct 44.9 % % (38.0-47.0) MCV 86.7 fL fL (81.5-99.8) MCH 29.7 pg pg (27.9-34.1) MCHC 34.3 g/dL g/dL (32.4-36.7) RDW 13.5 % % (11.5-15.2) Plt Count 310 10^3/uL 10^3/uL (150-400) MPV 11.7 fL fL (8.7-11.7) Neut % (Auto) 68.1 % % (39.3-74.2) Lymph % (Auto) 26.4 % % (15.0-45.0) [place] % (Auto) 4.5 % % (4.5-13.0) Eos % (Auto) 0.3 % L % (0.6-7.6) Baso % (Auto) 0.4 % % (0.3-1.7) Nucleat RBC Rel Count 0.0 % % (0.0-0.2) Absolute Neuts (auto) 8.44 10^3/uL H 10^3/uL (1.70-6.50) Absolute Lymphs (auto) 3.27 10^3/uL H 10^3/uL (1.00-3.00) Absolute Monos (auto) 0.56 10^3/uL 10^3/uL (0.30-0.80) Absolute Eos (auto) 0.04 10^3/uL 10^3/uL (0.03-0.40) Absolute Basos (auto) 0.05 10^3/uL 10^3/uL (0.02-0.10) Absolute Nucleated RBC 0.00 10^3/uL 10^3/uL (0-0.01) Immature Gran % 0.3 % % (0.0-1.1) Immature Gran # 0.04 10^3/uL 10^3/uL (0.00-0.10) Sodium 139 mEq/L mEq/L (135-145) Potassium 3.9 mEq/L mEq/L (3.3-5.0) Chloride 104 mEq/L mEq/L (97-110) Carbon Dioxide 20 mEq/l L mEq/l (22-31) Anion Gap 15 mEq/L H mEq/L (6-14) BUN 12 mg/dL mg/dL (7-23) Creatinine 0.8 mg/dL mg/dL (0.6-1.0) Estimated GFR > 60 Glucose 145 mg/dL H mg/dL (70-100) Calcium 11.3 mg/dL H mg/dL (8.5-10.4) Phosphorus Pending Total Bilirubin 0.7 mg/dL mg/dL (0.1-1.4) Conjugated Bilirubin 0.2 mg/dL mg/dL (0.0-0.5) Unconjugated Bilirubin 0.5 mg/dL mg/dL (0.0-1.1) AST 35 IU/L IU/L (14-46) ALT 26 IU/L IU/L (9-52) Alkaline Phosphatase 60 IU/L IU/L (38-126) Total Protein 8.7 g/dL H g/dL (6.3-8.2) Albumin Pending Lipase 31 IU/L IU/L (23-300) Beta HCG, Qual NEGATIVE Medications Given: Discontinued Medications Haloperidol Lactate (Haldol Injection) 2.5 mg IVP EDNOW ONE Stop: 09/05/18 12:59 Last Admin: 09/05/18 13:10 Dose: 2.5 mg Sodium Chloride (Ns) 1,000 mls @ 0 mls/hr IV EDNOW ONE; Wide Open PRN Reason: Protocol Stop: 09/05/18 13:08 Last Admin: 09/05/18 13:09 Dose: 1,000 mls Departure - Departure Disposition: Home, Routine, Self-Care Clinical Impression: Volume depletion Abdominal pain Qualifiers: Abdominal location: generalized Qualified Code(s): R10.84 - Generalized abdominal pain Nausea & vomiting Qualifiers: Vomiting type: cyclical vomiting Vomiting Intractability: non-intractable Qualified Code(s): G43.A0 - Cyclical vomiting, not intractable Condition: Good Instructions: Acute Nausea and Vomiting (ED) Additional Instructions: Seek immediate medical attention if you develop new or worsening symptoms, if you develop fevers, chills, inability to tolerate oral intake or any other symptoms that concerns you. Referrals: Ben Austin MD, FACG [Medical Doctor] - As per Instructions Prescriptions: Ondansetron Odt [Zofran Odt] 4 mg PO Q4PRN PRN #10 tab PRN Reason: Nausea
[2018-09-05] MEDS ORDERED: NS 1,000 ML IV ONE (13:07)
[2018-09-05 14:26] LABS: PLATELET COUNT 310 10^3/uL (150-400)
[2018-09-05 14:57] VITALS: BP 110/57
== END 2018-09-05 15:05 | disposition home or self-care (01) ==
DX: G43.A0 Cyclical vomiting, in migraine, not intractable (principal); E86.9 Volume depletion, unspecified; R10.84 Generalized abdominal pain
CPT/HCPCS: 96374; J1630

== ENCOUNTER 2019-03-02 07:43 | Emergency (ER) | payer BC ==
[2019-03-02] MEDS ORDERED: ACETAMINOPHEN 500 MG TAB PO ONE (08:05)
--- NOTE | 2019-03-02 08:08 | EDPHY ---
HPI/HX/ROS/PE/MDM Narrative: CHIEF COMPLAINT: Fall, headache HPI: The patient is a 24-year-old female with a history of previous ED visits related to nausea and vomiting. The patient states that 2 nights ago, she was very intoxicated and fell. She does not remember any of the details but her friend states that this was a fall from standing and that he did not mention whether not she lost consciousness. She denies other injuries. Since that time , the patient is felt nausea, posterior headache and some photophobia. REVIEW OF SYSTEMS: Aside from elements discussed in the HPI, a comprehensive 10-point review of systems was reviewed and is negative. PMH: Intermittent nausea and vomiting. SOCIAL HISTORY: Single. Denies drug abuse. PHYSICAL EXAM: General:Patient is alert, in no acute distress. Head: Mild tenderness to the occiput but no deformity or crepitus. ENT:Eyes are normal to inspection. ENT inspection normal. Neck: Normal inspection. Full range of motion. Respiratory:No respiratory distress. Breath sounds normal bilaterally. Cardiovascular: Regular rate and rhythm. Strong peripheral pulses. Normal cap refill. Abdomen:The abdomen is nontender to palpation. There are no peritoneal signs. There are normal bowel sounds. Back: Normal to inspection. No tenderness to palpation. Skin: Scattered abrasions noted. Extremities: Normal appearance. Full range of motion. Neuro: Oriented x3. Normal motor function. Normal sensory function. MDM: This patient presents with concussive symptoms 2 days after what sounds like most likely a minor fall. I discussed options with her as well as the fact that I think it is very unlikely she has an intracranial bleed. She would like to proceed with CT scan of her head to ensure that there is no significant injury. CT head is negative. Patient will be discharged with concussion precautions. - Data Points Imaging: Discussed imaging studies w/ call out clerk Radiologist, I viewed and interpreted images myself General Time Seen by Provider: 03/02/19 07:57 Initial Vital Signs: Initial Vital Signs Temperature (C) 36.7 C 03/02/19 07:47 Heart Rate 78 03/02/19 07:47 Respiratory Rate 16 03/02/19 07:47 Blood Pressure 131/91 H 03/02/19 07:47 O2 Sat (%) 99 03/02/19 07:47 O2 Delivery Mode Room Air Allergies/Adverse Reactions: No Known Allergies Allergy (Verified 03/02/19 07:46) Home Medications: Medication Instructions Recorded Bcp 03/02/19 Departure - Departure Disposition: Home, Routine, Self-Care Clinical Impression: Concussion Condition: Good Instructions: Concussion (ED) Additional Instructions: Follow-up with your primary doctor within 72 hours. Return to the Emergency Department for severe headache, vomiting, vision changes, confusion, fever or other concerns. Referrals: NONE *PRIMARY CARE P,. [Primary Care Provider] - As per Instructions
[2019-03-02] MEDS ORDERED: ONDANSETRON DISINTEGRATING 4 MG TAB ONE (08:11)
[2019-03-02] MEDS ORDERED: LIDOCAINE 1% 300 MG/30 ML SDV ONE (08:38)
[2019-03-02 08:51] VITALS: BP 122/75
== END 2019-03-02 08:53 | disposition home or self-care (01) ==
DX: S06.0X0A Concussion without loss of consciousness, initial encounter (principal); W19.XXXA Unspecified fall, initial encounter